=== PATIENT | male | born 1995 | race Caucasian/White ===

== ENCOUNTER 2025-07-07 06:19 | Emergency (ER) | payer OTHER ==
[2025-07-07] MEDS: Ondansetron 4 MG/2 ML SDV IVPUSH ONE (06:35)
[2025-07-07 06:39] LABS: BASOPHILS ABSOLUTE AUTO 0.0 x10^3/uL (0.0-0.2); BASOPHILS PERCENT AUTO 0.1 % (0.2-1.2); EOSINOPHILS ABSOLUTE AUTO 0.0 x10^3/uL (0.0-0.5); EOSINOPHILS PERCENT AUTO 0.1 % (0.0-4.0); IMMATURE GRAN ABSOLUTE AUTO 0.04 x10^3/uL (0.00-0.07); IMMATURE GRAN PERCENT AUTO 0.20 % (0.00-0.43); LYMPHOCYTES ABSOLUTE AUTO 1.7 x10^3/uL (1.0-4.8); LYMPHOCYTES PERCENT AUTO 9.6 % (25.0-50.0); MONOCYTES ABSOLUTE AUTO 2.0 x10^3/uL (0.0-0.8); MONOCYTES PERCENT AUTO 11.5 % (2.0-11.0); NEUTROPHILS ABSOLUTE AUTO 13.9 x10^3/uL (1.8-7.7); NEUTROPHILS PERCENT AUTO 78.5 % (50.0-80.0); PLATELET COUNT,PLT 225 x10^3/uL (130-400); RED BLOOD CELL COUNT 5.11 x10^6/uL (4.5-6.0)
[2025-07-07 06:45] LABS: WHITE BLOOD CELL COUNT,WBC 17.8 x10^3/uL (4.0-10.0)
[2025-07-07 06:47] LABS: A/G RATIO 1.03; ALANINE AMINOTRANSFERASE,ALT 22.0 U/L (16-63); ASPARTATE AMNIOTRANSFERASE,AST 18.0 U/L (15-37); BILIRUBIN TOTAL 1.2 mg/dL (0.2-1.0); BLOOD UREA NITROGEN,BUN 12.0 mg/dL (7-18); CARBON DIOXIDE,CO2 27.0 mmol/L (21-32); CHLORIDE,CL 100.0 mmol/L (98-107); CREATININE 1.1 mg/dL (0.70-1.30); EST CRCL DRUG DOSING (CG) 106.72 mL/min; GLUCOSE RANDOM 161.0 mg/dL (70-99); POTASSIUM,K 3.7 mmol/L (3.5-5.1); PROTEIN TOTAL,TP 7.9 g/dL (6.4-8.2); SODIUM,NA 138.0 mmol/L (136-145)
[2025-07-07 06:49] LABS: ESTIMATED GFR 94.0 mL/min (>=60)
[2025-07-07] MEDS: Iopamidol 612 MG/ML 100 ML Bottle IVPUSH ONE (07:52)
[2025-07-07 07:55] LABS: APPEARANCE,URINE SLIGHTLY CLOUDY (CLEAR); GLUCOSE,URINE NEGATIVE (NEGATIVE); OCCULT BLOOD,URINE TRACE-INTACT (NEGATIVE)
[2025-07-07 08:03] LABS: SQUAMOUS EPITHELIAL CELLS,UR RARE /HPF (NOT SEEN)
== END 2025-07-07 11:03 | disposition short-term general hospital (02) ==
LOC: VM.ED 06:19
DX: K35.30 Acute appendicitis with localized peritonitis, without perforation or gangrene (principal)
CPT/HCPCS: 74177; 80053; 81001; 83605; 85025; 86140; 96361; 96374; 96375; 96376; 99284; 99285-25; J1335; J2270; J2405; J7030; Q9967